=== PATIENT | female | born 1980 | race American Indian/Alaskan Native ===

== ENCOUNTER 2016-07-15 11:36 | Day surgery (SDC) | payer MEDICARE ==
[~2016-07-15 11:36] MED LIST: ANCEF/STERILE WATER 2 GM/20 ML 2 GM/20 ML SYRINGE IV NR; NACL 0.9% 1000 ML 1,000 ML IV SCH; PEPCID PO NR; VERSED IV NR
--- NOTE | 2016-07-15 11:52 | Anesthesia Consultation ---
Anesthesia Consult and Med Hx Date of service: 07/15/16 - Airway Anesthetic Teeth Evaluation: Good ROM Head & Neck: Adequate Mental/Hyoid Distance: Adequate Mallampati Class: Class II Intubation Access Assessment: Probably Good - Pulmonary Exam CTA: Yes - Cardiac Exam Cardiac Exam: RRR - Pre-Operative Health Status ASA Pre-Surgery Classification: ASA2 Proposed Anesthetic Plan: General - Pulmonary Hx Smoking: No Hx Asthma: No Hx Sleep Apnea: No - Cardiovascular System Hx Hypertension: No Hx Coronary Artery Disease: No - Central Nervous System Hx Seizures: No CVA: No Hx Back Pain: No (LEFT HIP PAIN) Hx Psychiatric Problems: Yes - Endocrine Hx Renal Disease: No Hx Cirrhosis: No Hx Liver Disease: No (HEP B) Hx Non-Insulin Dependent Diabetes: No Hx Hyperthyroidism: No - Hematic Hx Anemia: No (HIV+) - Other Systems Hx Alcohol Use: Yes (WINE) Hx Substance Use: No Hx Cancer: No - Additional Comments Anesthesia Medical History Comments: HIV+, TRANSGENDER
[2016-07-15] MEDS ORDERED: DILAUDID IV PRN (11:55)
[2016-07-15] MEDS ORDERED: MORPHINE IV PRN (11:55)
[2016-07-15] MEDS ORDERED: ZOFRAN IV PRN (11:55)
--- NOTE | 2016-07-15 11:56 | Anesthesia Day of Surgery ---
Anesthesia Day of Surgery - Day of Surgery Patient Examined: Yes Patient H&P Reviewed: Yes Patient is NPO: Yes
[2016-07-15] MEDS ORDERED: XYLOCAINE MPF 2% ONE (12:08)
[2016-07-15] MEDS ORDERED: SUBLIMAZE ONE (12:08)
[2016-07-15] MEDS ORDERED: DIPRIVAN 10 MG/ML IV ONE (12:08)
[2016-07-15] MEDS ORDERED: ZOFRAN ONE (12:14)
[2016-07-15] MEDS ORDERED: DECADRON ONE (12:14)
[2016-07-15] MEDS ORDERED: DEMEROL ONE (13:20)
[2016-07-15] MEDS ORDERED: DEMEROL IV PRN (13:28)
--- NOTE | 2016-07-15 14:36 | Fluoroscopy Report ---
RETROGRADE PYELOGRAM: There is adequate filling of the ureters and intrarenal collecting systems with no filling defects or anatomic abnormalities identified.
--- NOTE | 2016-07-15 14:47 | Post Anesthesia Evaluation ---
- Post Anesthesia Evaluation Patient Participated: Yes Airway Patent: Yes Stable Respiratory Function: Yes Nausea/Vomiting: No Temp > 96.8F: Yes Pain Manageable: Yes Adequeate Hydration: Yes Anesthesia Complications: No Block Receding Appropriately: Not Applicable Patient on Ventilator: No
[2016-07-15 15:47] VITALS: BP 100/68
--- NOTE | 2016-07-15 18:48 | Operative Report ---
PREOPERATIVE DIAGNOSES: 1. Dysuria. 2. Hematuria. POSTOPERATIVE DIAGNOSES: 1. Dysuria. 2. Hematuria as well as urethral stricture. PROCEDURE: Cystoscopy, urethral dilatation to 24 Yemeni, hydrodistention, bilateral pyelograms. SURGEON: Hakeem Pugh M.D. ANESTHESIA: General. ANESTHESIOLOGIST: Dr. Vargas. ESTIMATED BLOOD LOSS: Minimal. FLUIDS: Crystalloid. COMPLICATIONS: No complications. INDICATIONS: This patient is a 36-year-old male with hematuria and dysuria. The patient is HIV positive as well as homosexual, found to have microscopic hematuria, presents now for surgical intervention. DESCRIPTION OF PROCEDURE: The patient was taken to the operative suite, placed in a supine position and after adequate general anesthesia, placed in a dorsal lithotomy position, prepped and draped in a sterile fashion. Pancystourethroscopy was performed with 24-Yemeni cystoscope. Obvious bulbar stricture could be appreciated, was dilated from 18-24 Yemeni without difficulty. There was inflammation in the bulb of the urethra suggesting possible infection in the past at the 6 o'clock position. Prostate was nonobstructing. Bladder: No tumors or stones were noted. Bilateral retrograde pyelograms were obtained with an 8-Yemeni Dante catheter and 8 mL of contrast. No filling defects or obstruction. Hydrodistention up to 800 revealed a bladder capacity of 800 mL. There was some petechial hemorrhage suggestive of interstitial cystitis versus significant chemical irritants. Rectal exam was benign. The patient was extubated and taken to recovery room. They will go home on Cipro and [place] and follow up in the office. JOB# [id number] [facility]
== END 2016-07-15 15:35 | disposition home or self-care (01) ==
LOC: OR 11:36
PROVIDERS: ATTEND Urology
DX: N35.9 Urethral stricture, unspecified (principal); Z72.89 Other problems related to lifestyle; Z87.440 Personal history of urinary (tract) infections
CPT/HCPCS: 52281; 74420; C1758; C1769; J0690; J1100; J2175; J2250; J2405; J2704; J3010; J7030; Q9967